=== PATIENT | male | born 1990 | race African-American/Black ===

== ENCOUNTER 2023-11-14 04:36 | Day surgery (SDC) | payer BC, OTHER ==
[2023-11-11 10:53] VITALS: BMI 26.4
[2023-11-14 11:56] VITALS: RESP 18
[2023-11-14] MEDS: LIDOCAINE HCL 1% PRESERVATIVE FREE - 30ML VIAL IJ ONE (12:50)
[2023-11-14] MEDS: IOHEXOL 180 MG/1 ML ML IJ ONE ×2 (12:54)
[2023-11-14] MEDS: DEXAMETHASONE SOD PHOSPHATE 10 MG/1 ML VIAL IM ONE ×2 (12:56)
[2023-11-14] MEDS ORDERED: ACETAMINOPHEN 500 MG TABLET (FP) PO PRN (13:27)
[2023-11-14 13:34] VITALS: BP 118/65; PULSE 50; TEMP 98.6
== END 2023-11-14 13:25 | disposition home or self-care (01) ==
LOC: JASU-SURG 04:36
PROVIDERS: ATTEND Pain Medicine Pain Medicine
PROC: 3E0R3BZ Introduction of Anesthetic Agent into Spinal Canal, Percutaneous Approach (ICD-10-PCS; 2023-11-14)
PROC: 3E0R33Z Introduction of Anti-inflammatory into Spinal Canal, Percutaneous Approach (ICD-10-PCS; principal; 2023-11-14 12:45)
DX: M54.16 Radiculopathy, lumbar region (principal)
CPT/HCPCS: 76000-TC-FY; J1100